=== PATIENT | female | born 1950 | race Caucasian/White ===

== ENCOUNTER 2023-06-16 10:54 | Emergency (ER) | payer MEDICAID, SELFPAY ==
[2023-06-16] VITALS (9 sets, daily range): BP systolic 123–151; BP diastolic 72–109; PULSE 56–72; RESP 12–14; TEMP 36.4; O2SAT 97–99; BMI 49.1
--- NOTE | 2023-06-16 11:16 | XR_ITS ---
Patient: AURA DARNELL Facility:?[facility] Patient ID:?[id number] Site Patient ID:?[id number]. Site :?[id number] Study:?XRay-Chest 2V-06/16/2023 11:37:06 AM Ordering Physician:ASHELY Final Report: INDICATION: Chest pain. COMPARISON: None available. TECHNIQUE: 2 views. FINDINGS: Medical Devices: None. Lung Volumes: Adequate inspiration. No significant atelectasis. Lungs: Clear lungs. Pleura and Pleural spaces: No significant pleural effusion. No pneumothorax. Mediastinum: Small to moderate hiatus hernia. Bony Thorax and Soft Tissues: No significant incidental findings. Right upper quadrant cholecystectomy clips. IMPRESSION: No specific radiographic findings to explain chest pain. Incidental findings described in the body of the report. Dictated by Darius Chowdhury MD @ 06/16/2023 11:45:05 AM Signed by:?Darius Chowdhury MD @06/16/2023 11:45:05 AM (Electronic Signature)
--- NOTE | 2023-06-16 11:18 | ED_ITS ---
HPI - General Adult General Chief complaint: Chest Pain Stated complaint: chest pain Time Seen by Provider: 06/16/23 11:05 Source: patient Mode of arrival: ambulatory Limitations: no limitations History of Present Illness HPI narrative: [age] Year old female, history of hypertension, hyperlipidemia, GERD presents today with chest pain. Patient has had chest pain on and off for the last 3 days. Pain is located over the left chest wall just medial to the axillary region. Nothing seems to make it better or worse. Generally occurs in the morning. She states that yesterday she had a from the time she woke up to about 1 in the afternoon it comes as a squeezing pressure that lasts a few minutes and then goes away, comes and goes frequently. She states that it makes her feel slightly nauseated. She denies vomiting, changes in her appetite. She denies any fevers or chills. She denies any coughing. She denies any recent travel. She states that she sometimes feels like she can not quite get enough air, but she is not breathing have your or faster per her report. Today she woke up around 7 and the same thing happen. He did not last quite as long. Patient presents today, she has already chest pain-free. Patient denies any tobacco use, has never had a stress test. Related Data Home Medications Medication Instructions Recorded Confirmed atorvastatin 10 mg tablet 10 mg PO DAILY 06/16/23 06/16/23 esomeprazole magnesium 20 mg 20 mg PO DAILY 06/16/23 06/16/23 capsule,delayed release (Nexium) lisinopril 10 mg tablet 10 mg PO DAILY 06/16/23 06/16/23 Allergies Allergy/AdvReac Type Severity Reaction Status Date / Time azithromycin Allergy Unknown Verified 06/16/23 11:09 morphine Allergy Unknown Verified 06/16/23 11:09 Penicillins Allergy Unknown Verified 06/16/23 11:09 Review of Systems Status of ROS: Reports: 10 or more systems reviewed and unremarkable except as noted in History and below [facility] Social History Smoking Status: Never smoker How often do you have a drink containing alcohol: never AUDIT-C Alcohol total score: 0 Non-prescribed substance use: denies use Exam Narrative: Exam Narrative: Well-nourished well-developed patient in no acute distress. Alert and oriented. Answers questions appropriately. Mood and affect are appropriate. Thoughts are goal oriented and rational. No tangential or magical thinking noted. Patient speaks in full sentences without needing to catch her breath. HEENT: Normocephalic atraumatic. Pupils are equally round reactive to light. Extraocular muscles are intact. Conjunctivae are moist without any icterus noted. Moist mucous membranes. Posterior pharynx is normal. Neck is soft. Cardiovascular: Heart is regular rate and rhythm S1 and S2 are present without any murmurs. Lungs: Clear to auscultation bilaterally no wheezes rhonchi or rales are appreciated. Patient takes deep breaths without any discomfort. Abdomen: Soft and nontender nondistended with normal bowel sounds. No guarding or rebound. Extremities: Bilateral lower extremities are without edema. Normal DP and PT pulses. Skin: Well perfused without any obvious rashes. Const: Vital Signs, click to edit/add: Vital Signs - 24 hr 06/16/23 11:00 06/16/23 11:01 06/16/23 11:33 Temperature 97.5 F L Pulse Rate 62 Pulse Rate [Pulse Oximeter] 72 Respiratory Rate 14 14 Blood Pressure 123/83 Blood Pressure [Le ft Upper Arm] 151/109 H Pulse Oximetry 98 98 98 Oxygen Delivery Me thod Room Air 06/16/23 12:02 Temperature Pulse Rate 58 L Pulse Rate [Pulse Oximeter] Respiratory Rate 12 Blood Pressure 136/73 Blood Pressure [Le ft Upper Arm] Pulse Oximetry 97 Oxygen Delivery Me thod Course Course ED Course: EKG, read by me, shows normal sinus rhythm with a pulse of 70. Chest x-ray, read by me, does not show any acute pathology. CBC entirely normal. Chemistries unremarkable. LFTs normal. Initial troponin less than 0.01. D-dimer was elevated at 1.51. Therefore we did proceed with a chest CT PE protocol which did not show any evidence of PE. Did show a renal cyst. Repeat EKG showed sinus bradycardia with a pulse of 51. Repeat troponin was unchanged. Patient remained asymptomatic while she was here. Vital Signs Vital signs: Initial Vital Signs Pulse Oximetry 98 06/16/23 11:00 Vital Signs Pulse Oximetry 98 06/16/23 11:00 Temperature 97.5 F L 06/16/23 11:01 Pulse Rate 58 L 06/16/23 12:02 Respiratory Rate 12 06/16/23 12:02 Blood Pressure 136/73 06/16/23 12:02 Pulse Oximetry 97 06/16/23 12:02 Oxygen Delivery Method Room Air 06/16/23 11:01 Medical Decision Making MDM Narrative Medical decision making narrative: Recurrent left-sided chest pain. Patient will follow-up with primary care on Monday. Stress test is recommended. Medical Records Medical records reviewed: Yes I reviewed the patient's medical records Lab Data Lab results reviewed: Yes I reviewed the patient's lab results Labs: Lab Results 06/16/23 06/16/23 Range/Units 11:25 13:00 WBC 4.53 (4.50-11.00) K/uL RBC 5.07 (4.00-5.20) m/uL Hgb 14.3 (12.0-16.0) gm/dL Hct 44.3 (33.0-51.0) % MCV 87 (80-100) fL MCH 28 (26-34) pg MCHC 32 (32-36) gm/dL RDW Coeff of Dianna 13.6 (11.5-15.5) % Plt Count 266 (140-440) K/uL Neut % (Auto) 62.0 (42.0-72.0) % Lymph % (Auto) 28.9 (20-44) % Caswell % (Auto) 6.6 (0.0-11.0) % Eos % (Auto) 1.8 (0.0-7.0) % Baso % (Auto) 0.7 (0.0-3.0) % Neut # (Auto) 2.81 (1.7-7.0) K/uL Lymph # (Auto) 1.31 (0.90-2.90) K/uL Caswell # (Auto) 0.30 (0.00-0.90) K/UL Eos # (Auto) 0.08 (0.00-0.50) K/uL Baso # (Auto) 0.03 (0.00-0.30) K/uL Abs Immat Gran (auto) 0.00 (0.00-0.30) K/uL Imm/Tot Granulo (auto) 0.0 % D-Dimer Quant (PE/DVT) 1.51 H (0.00-0.50) ug/ml Sodium 141 (135-149) mmol/L Potassium 3.9 (3.6-5.1) mmol/L Chloride 105 (96-114) mmol/L Carbon Dioxide 30 (20-32) mmol/L Anion Gap 6 L (7-15) mEq/L BUN 16 (7-30) mg/dL Creatinine 0.6 (0.5-1.5) mg/dL Estimated Creat Clear 38.37 Estimated GFR 95 ml/min Glucose 99 (60-115) mg/dL Calcium 9.3 (8.4-10.6) mg/dL Total Bilirubin 0.7 (0.1-1.5) mg/dL Direct Bilirubin 0.1 (0.0-0.5) mg/dL AST 22 (12-35) U/L ALT 19 (4-35) U/L Alkaline Phosphatase 88 (40-150) U/L Troponin I < 0.01 L (0.01-0.04) ng/mL C-Reactive Protein < 0.5 L (0.5-1.0) mg/dL Total Protein 7.3 (6.0-8.3) g/dL Albumin 4.5 (3.3-5.0) g/dL Lipase 232 (23-300) U/L POC Troponin I 0.00 L 0.00 L (0.01-0.04) ng/ml Imaging Data Chest x-ray: Attestation: I have reviewed the pertinent imaging results. Radiologist's impression: 2 views. FINDINGS: Medical Devices: None. Lung Volumes: Adequate inspiration. No significant atelectasis. Lungs: Clear lungs. Pleura and Pleural spaces: No significant pleural effusion. No pneumothorax. Mediastinum: Small to moderate hiatus hernia. Bony Thorax and Soft Tissues: No significant incidental findings. Right upper quadrant cholecystectomy clips. IMPRESSION: No specific radiographic findings to explain chest pain. Incidental findings described in the body of the report. CT scan - chest: Attestation: I have reviewed the pertinent imaging results. Radiologist's impression: TECHNIQUE: CT pulmonary angiography with 100 cc of Omnipaque 350 intravenous contrast. Please note that all CT scans at this facility use dose modulation, iterative reconstruction, and/or weight-based dosing when appropriate to reduce radiation dose to as low as reasonably achievable. FINDINGS: Pulmonary Arterial Vasculature: Opacification of the pulmonary arterial tree is adequate. No intraluminal pulmonary arterial filling defect is identified to indicate a pulmonary embolism. Visualized Lower Neck: No lower cervical adenopathy. Mediastinum: Thoracic aorta and pulmonary trunk are normal in caliber. Heart and pericardium are without significant findings. Moderate hiatus hernia with a partially intrathoracic stomach. There is no mediastinal lymphadenopathy. Lungs and Pleura: No significant pulmonary findings. No significant pleural effusion. No pneumothorax. Skeleton: No significant osseous findings. Thoracic soft tissues: Unremarkable. No axillary adenopathy. Visualized Upper Abdomen: No significant findings. 3.6 cm exophytic interpolar right renal cortical cysts and multiple left parapelvic cysts. Cholecystectomy. Diverticulosis of the left colon. IMPRESSION: No evidence of pulmonary embolism or other acute cardiopulmonary process. Incidental findings described above. ECG Data Attestation: I personally reviewed and interpreted this ECG as follows: Discharge Plan Discharge Clinical Impression: Chest pain Patient Disposition: Home, Self-Care Condition: Stable Additional Instructions: Your workup today did not show any evidence of heart damage, lung disease such as pneumonia or blood clots. Keep your appointment with your primary care provider. At that appointment you should discuss whether or not you should proceed with a heart stress test. In the meantime, if the chest pain returns and does not go away with rest, or if you develop nausea, sweating, or dizziness when it occurs, I recommend you return to the ER. Prescriptions: No Action atorvastatin 10 mg tablet 10 mg PO DAILY lisinopril 10 mg tablet 10 mg PO DAILY esomeprazole magnesium [Nexium] 20 mg capsule,delayed release(DR/EC) 20 mg PO DAILY Follow Up/Referrals: Provider,Not a Local [Primary Care Provider] - Stand Alone Forms: [facility] Info Instructions
[2023-06-16 11:35] LABS: Basophils Absolute Auto 0.03 K/uL (0.00-0.30); Basophils Percent Auto 0.7 % (0.0-3.0); Eosinophils Absolute Auto 0.08 K/uL (0.00-0.50); Eosinophils Percent Auto 1.8 % (0.0-7.0); Hematocrit 44.3 % (33.0-51.0); Hemoglobin* 14.3 gm/dL (12.0-16.0); Lymphocytes Absolute Auto 1.31 K/uL (0.90-2.90); Lymphocytes Percent Auto 28.9 % (20-44); Mean Corpuscular HGB Conc 32 gm/dL (32-36); Mean Corpuscular Hemoglobin 28 pg (26-34); Mean Corpuscular Volume 87 fL (80-100); Monocytes Percent Auto 6.6 % (0.0-11.0); Neutrophils Absolute Auto 2.81 K/uL (1.7-7.0); Platelet Count* 266 K/uL (140-440); RDW Coefficient of Variation % 13.6 % (11.5-15.5); Red Blood Count 5.07 m/uL (4.00-5.20); White Blood Count* 4.53 K/uL (4.50-11.00)
[2023-06-16 11:36] LABS: Slide Review Reflex No
[2023-06-16 11:47] LABS: Albumin* 4.5 g/dL (3.3-5.0); Chloride* 105 mmol/L (96-114)
[2023-06-16 11:48] LABS: Potassium* 3.9 mmol/L (3.6-5.1); Sodium* 141 mmol/L (135-149)
[2023-06-16 11:49] LABS: Creatinine* 0.6 mg/dL (0.5-1.5); Est. Creatinine Clearance* 38.37; Estimated Glomerular Filt Rate 95 ml/min
[2023-06-16 11:50] LABS: Alkaline Phosphatase* 88 U/L (40-150); Anion Gap 6 mEq/L (7-15); Aspartate Amino Transferase* 22 U/L (12-35); Bilirubin Direct* 0.1 mg/dL (0.0-0.5); Bilirubin Total* 0.7 mg/dL (0.1-1.5); Blood Urea Nitrogen* 16 mg/dL (7-30); Carbon Dioxide* 30 mmol/L (20-32); Lipase* 232 U/L (23-300); Total Protein* 7.3 g/dL (6.0-8.3)
[2023-06-16 11:51] LABS: Alanine Aminotransferase* 19 U/L (4-35); Calcium* 9.3 mg/dL (8.4-10.6); Glucose* 99 mg/dL (60-115)
[2023-06-16 11:54] LABS: D Dimer Quantitative* 1.51 ug/ml (0.00-0.50)
[2023-06-16 11:55] LABS: C Reactive Protein* < 0.5 mg/dL (0.5-1.0)
[2023-06-16 12:17] LABS: Troponin I* < 0.01 ng/mL (0.01-0.04)
--- NOTE | 2023-06-16 12:21 | CT_ITS ---
Patient: AURA DARNELL Facility:?[facility] Patient ID:?[id number] Site Patient ID:?[id number]. Site :?[id number] Study:?CT-Chest PE W/IV-06/16/2023 12:59:40 PM Ordering Physician:ASHELY Final Report: INDICATION: COMPARISON: None available. TECHNIQUE: CT pulmonary angiography with 100 cc of Omnipaque 350 intravenous contrast. Please note that all CT scans at this facility use dose modulation, iterative reconstruction, and/or weight-based dosing when appropriate to reduce radiation dose to as low as reasonably achievable. FINDINGS: Pulmonary Arterial Vasculature: Opacification of the pulmonary arterial tree is adequate. No intraluminal pulmonary arterial filling defect is identified to indicate a pulmonary embolism. Visualized Lower Neck: No lower cervical adenopathy. Mediastinum: Thoracic aorta and pulmonary trunk are normal in caliber. Heart and pericardium are without significant findings. Moderate hiatus hernia with a partially intrathoracic stomach. There is no mediastinal lymphadenopathy. Lungs and Pleura: No significant pulmonary findings. No significant pleural effusion. No pneumothorax. Skeleton: No significant osseous findings. Thoracic soft tissues: Unremarkable. No axillary adenopathy. Visualized Upper Abdomen: No significant findings. 3.6 cm exophytic interpolar right renal cortical cysts and multiple left parapelvic cysts. Cholecystectomy. Diverticulosis of the left colon. IMPRESSION: No evidence of pulmonary embolism or other acute cardiopulmonary process. Incidental findings described above. Please note that all CT scans at this facility use dose modulation, iterative reconstruction, and/or weight-based dosing when appropriate to reduce radiation dose to as low as reasonably achievable. Dictated by Darius Chodwhury MD @ 06/16/2023 1:08:07 PM Signed by:?Darius Chowdhury MD @06/16/2023 1:08:07 PM (Electronic Signature)
== END 2023-06-16 13:51 | disposition home or self-care (01) ==
PROVIDERS: Emergency Provider Family Medicine
DX: R07.9 Chest pain, unspecified (principal)
CPT/HCPCS: 36415; 71046; 71275; 80048; 80076; 83690; 84484; 85025; 85379; 86140; 93005; 94761; 99284; 99285; Q9967